=== PATIENT | male | born 2005 | race Caucasian/White ===

== ENCOUNTER 2025-06-23 02:07 | Emergency (ER) | payer BC ==
[~2025-06-23] VITALS: Ht 188 cm; Wt 88.1 kg
[2025-06-23 02:18] VITALS: O2SAT 98
[2025-06-23 02:19] VITALS: BP 138/84; PULSE 89; RESP 16; TEMP 36.7; O2SAT 99
[2025-06-23] MEDS: KETOROLAC 30MG/ML VIAL IM ONE (03:42)
== END 2025-06-23 03:52 | disposition home or self-care (01) ==
LOC: ER 02:07
DX: H92.02 Otalgia, left ear (principal)
CPT/HCPCS: 99283; 96372; J1885